=== PATIENT | male | born 1970 | race Caucasian/White ===

== ENCOUNTER 2017-04-01 23:44 | Emergency (ER) | payer MEDICAID ==
[2017-04-02] MEDS ORDERED: ONDANSETRON 4 MG/2 ML VIAL IVP STA (00:09)
[2017-04-02] MEDS ORDERED: HYDROmorphone 1 MG/ML SYRINGE IVP STA (00:09)
--- NOTE | 2017-04-02 00:13 | ED Physician Documentation ---
History of Present Illness - Stated complaint Stated Complaint: HEADACHE - Chief complaint Chief Complaint: Neuro - Additonal information Additional information: hx from pt 47 y/o m to ER with SALCIDO had a bad SALCIDO yesterday, it resolved, mild SALCIDO earlier today, then 2 hr [employer] sudden severe R sided SALCIDO no trauma no numbness or weakness no fever or neck stiffness no vision changes or eyeball pain some recent congestion pmhx drug use (meth and marijuana) Hep B and hep C s/p interferon tx with no residual viral load hep C neg still uses most recently about a week ago but states smokes his drugs not IV alos hx DVT several yr ago but not on blood thinners now denies any chance of CO - has electric heater, CO monitor at the [place] Review of Systems Constitutional: denies: Fever, Chills Eyes: denies: Loss of vision Cardiac: denies: Chest pain / pressure Respiratory: denies: Dyspnea GI: denies: Abdominal Pain, Nausea, Vomiting Neurologic: reports: Headache. denies: Focal weakness, Numbness, Head injury Endocrine: denies: Easy bruising / bleeding Immunocompromised: denies: Immunocompromised PD PAST MEDICAL HISTORY - Past Medical History GI: Esophageal varices, Diverticulitis : Kidney stones Psych: Bipolar disorder - Past Surgical History Past Surgical History: Yes General: Bowel surgery - Present Medications Home Medications: Ambulatory Orders Medication Instructions Recorded Confirmed oxyCODONE/ACET 5/325 [Percocet 5 1 each PO Q4-6H PRN #10 tablet 03/01/13 mg/325 mg] Warfarin [Coumadin] 5 mg PO DAILY #20 tablet 07/06/15 07/17/15 Enoxaparin [Lovenox] 120 mg SUBQ Q24H #4 syringe 07/17/15 Warfarin [Coumadin] 7.5 mg PO DAILY #40 tablet 07/17/15 oxyCODONE [Roxicodone] 5 mg PO Q4-6H PRN #25 tablet 07/17/15 Doxycycline Hyclate 100 mg PO BID #14 capsule 04/02/17 Oxymetazoline HCl [Afrin] 2 spray NS BID PRN #1 bottle 04/02/17 Pseudoephedrine [Sudafed] 30 mg PO Q6H PRN #20 tablet 04/02/17 - Allergies Allergies/Adverse Reactions: Allergies Allergy/AdvReac Type Severity Reaction Status Date / Time Penicillins Allergy Severe Itching Verified 03/01/13 20:03 - Social History Does the pt smoke?: Yes Smoking Status: Current every day smoker Does the pt drink ETOH?: No Does the pt have substance abuse?: Yes - Immunizations Immunizations are current?: Yes - POLST Patient has POLST: No PD ED PE NORMAL - Vitals Vital signs reviewed: Yes - General General: Alert and oriented X 3 - HEENT HEENT: PERRL, EOMI, Other (globes soft, pupils equal and reactive, not fixed and hazy, no TA TTP EOMI, no proptosis) - Neck Neck: Supple, no meningeal sign - Cardiac Cardiac: RRR - Respiratory Respiratory: No respiratory distress, Clear bilaterally - Abdomen Abdomen: Soft, Non tender - Derm Derm: Normal color, Other (no track slater) - Neuro Neuro: Alert and oriented X 3, restaurant mgr 2-12 intact, No motor deficit, No sensory deficit, Normal speech Results - Vitals Vitals: Vital Signs - 24 hr 04/01/17 23:49 Temperature 36.3 C L Heart Rate 80 Respiratory 16 Rate Blood Pressure 159/99 H O2 Saturation 99 Oxygen O2 Source Room air - Labs Labs: Laboratory Tests 04/02/17 04/02/17 00:00 00:00 WBC 8.6 RBC 4.74 Hgb 14.1 Hct 42.0 MCV 88.6 MCH 29.7 MCHC 33.5 RDW 13.8 Plt Count 258 MPV 8.5 Neut # 5.2 Lymph # 2.3 Alpine # 0.8 Eos # 0.1 Baso # 0.2 H Absolute Nucleated RBC 0.01 Nucleated RBCs 0.1 Sodium 136 Potassium 3.8 Chloride 100 L Carbon Dioxide 27 Anion Gap 9.0 BUN 21 H Creatinine 1.2 Estimated GFR (MDRD) 65 L Glucose 135 H Calcium 9.1 - Rads (name of study) CTH Radiology: See rad report (no ICH, R maxillary sinus nearly opacified, frontal sinuses congenitally absent) PD MEDICAL DECISION MAKING - ED course ED course: acute R maxillary sinusitis matches location of pt sx and his recent congestion , not sure why is so acutely worsened tonight d/w pt that i think his sx are due to sinusitis but to be 100% sure he does not have any bleeding in his brain we could do a spinal tap and he declines Departure - Departure Disposition: Home, Self Care Clinical Impression: Sinusitis Qualifiers: Sinusitis location: maxillary Chronicity: acute Recurrence: not specified as recurrent Qualified Code(s): J01.00 - Acute maxillary sinusitis, unspecified Condition: Good Instructions: ED Headache Sinus Prescriptions: Oxymetazoline HCl [Afrin] 2 spray NS BID PRN #1 bottle PRN Reason: nasal sinus ear congestion Doxycycline Hyclate 100 mg PO BID #14 capsule Pseudoephedrine [Sudafed] 30 mg PO Q6H PRN #20 tablet PRN Reason: congestion, sinus pain Comments: The CT scan shows a congested right maxillary sinus which is the likely cause of your pain The CT scan did not show any bleeding in your brain - we discussed that a spinal tap could be done to rule out bleeding with an even higher degree of certainty and you declined. Take the antibiotics and decongestants. A sinus irrigation system such as a Daisy Pot will likely give you significant relief as well. Follow up with your PMD for a recheck And pleas get your blood pressure rechecked as well - it was high today Forms: Activity restrictions
[2017-04-02] MEDS ORDERED: ONDANSETRON 4 MG/2 ML VIAL ONE (00:17)
[2017-04-02] MEDS ORDERED: SODIUM CHLORIDE FLUSH 0.9% 10 ML SYRINGE IVP ONE (00:17)
[2017-04-02] MEDS ORDERED: HYDROmorphone 1 MG/ML SYRINGE ONE (00:17)
[2017-04-02 00:18] LABS: BASOPHILS # (AUTO) 0.2 10^3/uL (0.0-0.1); BASOPHILS % (AUTO) 2.2 %; EOSINOPHILS # (AUTO) 0.1 10^3/uL (0.0-0.7); EOSINOPHILS % (AUTO) 1.6 %; HGB - HEMOGLOBIN 14.1 g/dL (14.0-18.0); LYMPHOCYTES # (AUTO) 2.3 10^3/uL (1.5-3.5); LYMPHOCYTES % (AUTO) 26.3 %; MEAN CORPUSCULAR HEMOGLOBIN 29.7 pg (27.0-31.0); MEAN CORPUSCULAR HGB CONC 33.5 g/dL (32.0-36.0); MEAN CORPUSCULAR VOLUME 88.6 fL (80.0-94.0); MEAN PLATELET VOLUME 8.5 fL (7.4-11.4); MONOCYTES # (AUTO) 0.8 10^3/uL (0.0-1.0); MONOCYTES % (AUTO) 9.1 %; NEUTROPHILS # (AUTO) 5.2 10^3/uL (1.5-6.6); NEUTROPHILS % (AUTO) 60.8 %; NUCLEATED RED BLOOD CELLS AUTO 0.1 /100WBC; RED BLOOD COUNT 4.74 10^6/uL (4.70-6.10); RED CELL DISTRIBUTION WIDTH 13.8 % (12.0-15.0); UNCORRECTED WHITE BLOOD COUNT 8.6 x10^3/uL; WHITE BLOOD COUNT 8.6 x10^3/uL (4.8-10.8)
[2017-04-02 00:24] LABS: CALCIUM 9.1 mg/dL (8.5-10.3); CREATININE 1.2 mg/dL (0.6-1.2); POTASSIUM 3.8 mmol/L (3.5-5.0)
--- NOTE | 2017-04-02 00:58 | CT Preliminary Report ---
Exam: CT Head W/O IMPRESSION: No acute or focal intracranial abnormality. No evidence of subarachnoid hemorrhage. Mucosal thickening nearly opacifies the visualized portion of the right maxillary antrum, this is new . Other visualized paranasal sinuses and mastoids are unremarkable. 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 [facility] SITE ID: [id number]
--- NOTE | 2017-04-02 01:00 | CT Report ---
EXAM: CT HEAD EXAM DATE: 04/02/2017 12:41 AM. CLINICAL HISTORY: Abrupt onset right-sided headache COMPARISON: 03/01/2013. TECHNIQUE: Multiaxial CT images were obtained from the foramen magnum to the vertex. IV contrast: Non e. Reformats: Coronal. In accordance with CT protocol optimization, one or more of the following dose reduction techniques w ere utilized for this exam: automated exposure control, adjustment of mA and/or KV based on patient s ize, or use of iterative reconstructive technique. FINDINGS: Parenchyma: No intraparenchymal hemorrhage. No evidence of mass, midline shift, or CT findings of inf arction. Dumont-white differentiation is distinct. Extraaxial Spaces: Normal for age. No subdural or epidural collections identified. Ventricles: Normal in size and position. Sinuses: Mucosal thickening nearly opacifies the visualized portion of the right maxillary antrum, th is is new. Other visualized paranasal sinuses and mastoids are unremarkable. Frontal sinuses are perry enitally absent. Bones: No evidence of fracture or calvarial defect. Other: None. IMPRESSION: No acute or focal intracranial abnormality. No evidence of subarachnoid hemorrhage. Mucosal thickening nearly opacifies the visualized portion of the right maxillary antrum, this is new . Other visualized paranasal sinuses and mastoids are unremarkable. 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 [facility] Referring Provider Line: [phone] SITE ID: [id number]
[2017-04-02] MEDS ORDERED: OXYMETAZOLINE NASAL SPRAY NAS STA (01:13)
[2017-04-02] MEDS ORDERED: OXYMETAZOLINE NASAL SPRAY NAS ONE (01:35)
[2017-04-02 02:30] VITALS: BP 155/100
== END 2017-04-02 02:37 | disposition home or self-care (01) ==
LOC: ED 23:44
DX: J01.00 Acute maxillary sinusitis, unspecified (principal); I85.00 Esophageal varices without bleeding; Z87.442 Personal history of urinary calculi; Z87.19 Personal history of other diseases of the digestive system; B19.10 Unspecified viral hepatitis B without hepatic coma; Z79.01 Long term (current) use of anticoagulants; F17.200 Nicotine dependence, unspecified, uncomplicated
CPT/HCPCS: 36415; 70450; 80048; 85025; 96374; 96375; 99283; A9270; J1170

== ENCOUNTER 2017-12-18 17:35 | Emergency (ER) | payer MEDICAID ==
--- NOTE | 2017-12-18 18:02 | ED Physician Documentation ---
PD HPI LOWER EXT INJURY - Stated complaint Stated Complaint: RT LEG SWOLLEN - Chief complaint Chief Complaint: General - History obtained from History obtained from: Patient - History of Present Illness PD HPI LOW EXT INJURY LOCATION: Right, Lower leg (has had edema of right leg for couple of weeks, worsening slowly. No noted injury. Had a fall with abrasion of the right knee last week, but that was already after some edema developing. Has some redness of the skin but also of left leg as well that he feels is just his complexion.), Foot Type of injury: No: Fall (had fall with knee abrasion after onset of edema had started.), Twist Timing - duration: Weeks (couple) Timing - details: Gradual onset, Still present Associated symptoms: Swelling, Discolored (mild redness). No: Weakness, Numbness Contributing factors: No: Anticoagulated Similar symptoms before: Diagnosis (had DVT in this leg last year and was on anticoag for few months. Not on any now.) Recently seen: Not recently seen Review of Systems Constitutional: denies: Fever, Chills Cardiac: denies: Chest pain / pressure, Palpitations Respiratory: denies: Dyspnea, Cough PD PAST MEDICAL HISTORY - Past Medical History Cardiovascular: Deep vein thrombosis GI: Esophageal varices, Diverticulitis : Kidney stones Psych: Bipolar disorder - Past Surgical History Past Surgical History: Yes General: Bowel surgery - Present Medications Home Medications: Ambulatory Orders Medication Instructions Recorded Confirmed Oxymetazoline HCl [Afrin] 2 spray NS BID PRN #1 bottle 04/02/17 Aspirin 81 mg PO 12/18/17 Cephalexin [Keflex] 500 mg PO QID #20 capsule 12/18/17 Cetirizine [ZyrTEC] 12/18/17 - Allergies Allergies/Adverse Reactions: Allergies Allergy/AdvReac Type Severity Reaction Status Date / Time Penicillins Allergy Severe Itching Verified 12/18/17 17:43 - Social History Does the pt smoke?: Yes Smoking Status: Current every day smoker Does the pt drink ETOH?: No Does the pt have substance abuse?: Yes Substance Use and Type: Marijuana, Meth - Immunizations Immunizations are current?: Yes - POLST Patient has POLST: No PD ED PE NORMAL - Vitals Vital signs reviewed: Yes - General General: Alert and oriented X 3, No acute distress, Well developed/nourished - Cardiac Cardiac: RRR, No murmur - Respiratory Respiratory: Clear bilaterally - Derm Derm: Normal color, Warm and dry - Extremities Extremities: Normal ROM s pain, Other (right leg with edema from knee down about twice the size of left leg. No calf tenderness per se. Abrasion left knee without infection. Some redness and warmth of skin anteriorly but not deep red. ) - Neuro Neuro: Alert and oriented X 3, No motor deficit, No sensory deficit, Normal speech Results - Vitals Vitals: Vital Signs - 24 hr 12/18/17 12/18/17 17:39 20:38 Temperature 37.0 C 37.0 C Heart Rate 89 78 Respiratory 18 18 Rate Blood Pressure 121/79 136/104 H O2 Saturation 97 96 Oxygen O2 Source Room air - Rads (name of study) duplex right leg Radiology: Prelim report reviewed (no DVT) PD MEDICAL DECISION MAKING - ED course Complexity details: considered differential (U/S without DVT. Presume venous insufficiency or lymphatic insuff. ), d/w patient Departure - Departure Disposition: 01 Home, Self Care Clinical Impression: Leg edema, right Cellulitis Qualifiers: Site of cellulitis: extremity Site of cellulitis of extremity: lower extremity Laterality: right Qualified Code(s): L03.115 - Cellulitis of right lower limb Condition: Stable Record reviewed to determine appropriate education?: Yes Instructions: ED Infec Skin Cellulitis, ED Leg Swelling Unilateral Prescriptions: Cephalexin [Keflex] 500 mg PO QID #20 capsule Comments: Your ultrasound is negative for blood clots. I think the swelling in your lower leg and foot relate more to impairment of the return flow of the veins and lymphatics even though there are not any clots. This would be treated by elevating it more often and using a compressive stocking. There is some redness and warmth of the skin so there might be some cellulitis though I do not think that is the main cause of the swelling. However we will treated with some antibiotics for several days. Call Wednesday for an appointment with your primary care for later in the week or about a week. Return if worsening symptoms. Discharge Date/Time: 12/18/17 20:42
--- NOTE | 2017-12-18 20:19 | Ultrasound Report ---
EXAM: RIGHT LOWER EXTREMITY VENOUS ULTRASOUND EXAM DATE: 12/18/2017 07:54 PM. CLINICAL HISTORY: Right leg swelling and tenderness/warmth. COMPARISON: None. TECHNIQUE: Real-time sonographic vascular imaging was performed by the diver helper through the lower extremity utilizing both color-flow and Doppler spectral analysis. Multiple food service sales representatives static justus ges were saved for review. FINDINGS: Common Femoral Vein (CFV): Normal. CFV-GSV Junction: Normal. Profunda Femoral Vein (PFV): Normal. Femoral Vein (FV) Prox: Normal. Femoral Vein (FV) Mid: Normal. Femoral Vein (FV) Dist: Normal. Popliteal Vein: Normal. Posterior Tibial Veins: Normal. Peroneal Veins: Normal. IMPRESSION: No evidence for deep venous thrombosis. [facility] Referring Provider Line: [phone] SITE ID: [id number]
--- NOTE | 2017-12-18 20:19 | Ultrasound Preliminary Report ---
Exam: US DUPLEX EXT VEINS RIGHT IMPRESSION: No evidence for deep venous thrombosis. [facility] SITE ID: [id number]
[2017-12-18] MEDS ORDERED: cephALEXin 250 MG CAPSULE PO STA (20:32)
[2017-12-18 20:39] VITALS: BP 136/104
== END 2017-12-18 20:42 | disposition home or self-care (01) ==
LOC: ED 17:35
DX: R60.0 Localized edema (principal); L03.115 Cellulitis of right lower limb; Z86.718 Personal history of other venous thrombosis and embolism; S80.211A Abrasion, right knee, initial encounter; W19.XXXA Unspecified fall, initial encounter; F17.200 Nicotine dependence, unspecified, uncomplicated
CPT/HCPCS: 93971; 99283; A9270

== ENCOUNTER 2018-01-05 08:00 | Outpatient (CLI) | payer MEDICAID ==
[2018-01-05 18:50] LABS: ALBUMIN 3.7 g/dL (3.2-5.5); BILIRUBIN,TOTAL 0.5 mg/dL (0.2-1.0); CALCIUM 9.1 mg/dL (8.5-10.3); CREATININE 0.9 mg/dL (0.6-1.2); TOTAL PROTEIN 7.3 g/dL (6.7-8.2)
[2018-01-05 19:16] LABS: HB2 TOTAL 15.8 g/dL; HEMOGLOBIN A1C 0.69 g/dL; HEMOGLOBIN A1C % 6.1 % (4.6-6.2)
== END 2018-01-05 08:01 ==
LOC: LAB.N 08:00
PROVIDERS: ATTEND Family Medicine
DX: F15.20 Other stimulant dependence, uncomplicated (principal); Z72.51 High risk heterosexual behavior; R73.9 Hyperglycemia, unspecified; E66.9 Obesity, unspecified
CPT/HCPCS: 36415; 80053; 80061; 83036; 83721; 84443; 85025; 86317; 86704; 86709; 86803; 87340; 87389

== ENCOUNTER 2018-02-04 11:14 | Outpatient (CLI) | payer MEDICAID ==
[2018-02-04 19:27] LABS: CHOL/HDL RATIO 4.8 (<5.0); CHOLESTEROL 225 mg/dL; HDL CHOLESTEROL 47 mg/dL; LDL CHOLESTEROL,CALCULATED 144 mg/dL; LDL/HDL RATIO 3.1 (<3.6); VLDL CHOLESTEROL 34 mg/dL
== END 2018-02-04 11:15 | disposition home or self-care (01) ==
LOC: LAB.N 11:14
PROVIDERS: ATTEND Family Medicine
DX: F15.20 Other stimulant dependence, uncomplicated (principal); R73.9 Hyperglycemia, unspecified; Z72.89 Other problems related to lifestyle; E66.9 Obesity, unspecified
CPT/HCPCS: 36415; 80061; 83721; 84443; 85025; 86317; 86704; 86709; 86803; 87340; 87389